=== PATIENT | male | born 1945 | race Caucasian/White ===

== ENCOUNTER 2017-07-12 09:43 | Inpatient (IN) | payer MEDICARE ==
[~2017-07-12] VITALS: Ht 175.3 cm; Wt 104.5 kg
--- NOTE | ~2017-07-12 | DS ---
Unit #: [id number] #: [id number] Patient: FUNMI MAHONEY [id number] [address] [place], [place] [address] [id number] I MR#: [id number] NAME: FUNMI MAHONEY. ROOM: 553 Age: 71 Sex: M Admission Date: 07/12/2017 : 1945 Discharge Date: 07/14/2017 Attending Physician: Miguel Rider M.D. Primary Care Physician: Liza Moore M.D. DISCHARGE SUMMARY DISCHARGE DIAGNOSES 1. Acute non-ST elevation myocardial infarction. 2. Status post thrombectomy and stenting to the saphenous vein graft to the diagonal with Xience drug-eluting stent. 3. Occluded hughes vein graft. 4. Left internal mammary artery patient to the left anterior descending. All other vein grafts occluded. 5. Mild ischemic cardiomyopathy. 6. Ejection fraction 45-50%. 7. Mild chronic systolic heart failure. 8. Hypokinesis of the mid septal wall on echocardiogram. 9. Hypertension. 10. Hyperlipidemia. 11. Mild aortic valve insufficiency and mild mitral valve regurgitation. 12. Benign prostatic hypertrophy. 13. History of 5 vessel coronary artery bypass graft in the past. 14. History of tobacco abuse. 15. History of postop atrial fibrillation in the past. DISCHARGE MEDICATIONS 1. Flomax 0.4 mg at bedtime. 2. Amiodarone 100 mg daily. 3. Lipitor 80 mg at bedtime. 4. Metoprolol tartrate 12.5 mg b.i.d. 5. Zestril 10 mg daily. 6. Zantac 150 mg daily. 7. Aspirin 81 mg daily. 8. Brilinta 90 mg p.o. b.i.d. for a month then patient to start Plavix 75 mg daily due to cost. 9. Sublingual nitroglycerin p.r.n. for chest pain. HISTORY AND HOSPITAL COURSE The patient is a 71-year-old male who was seen in the emergency room with angina at rest that woke him up in the middle of the night. Due to patient's significant cardiac history, there were some abnormalities on his EKG with deep T wave inversion in lead I and AVL as well as a elevation in troponin of 9.96. It was recommended he undergo coronary angiography. Risks and benefits were explained to the patient, he was agreeable. Full cardiac cath report is not available at this time; however, written in chart. All hughes vessels closed such as the left main, RCA, circumflex, LAD, the saphenous vein graft to diagonal was 100% and the MICHAEL was patent. The patient underwent pronto thrombectomy, angioplasty and stenting with a Xience drug-eluting stent x1 to the saphenous vein graft to the diagonal. He was loaded with Brilinta and Unit #: [id number] #: [id number] Patient: FUNMI MAHONEY started on 90 mg b.i.d. Patient went to the ICU post procedure for closer monitoring. Patient did well. He has been up walking around without chest pain. Echocardiogram was performed that showed left ventricular size mildly increased, mild asymmetric septal hypertrophy. Left ventricular systolic function is mildly reduced with LVEF of 45-50, moderate hypokinesis of the mid to septal wall, mildly dilated right ventricle. Right ventricle global systolic function is low normal. Aortic valve is calcified without any evidence of significant aortic stenosis, mild aortic insufficiency, mild mitral valve regurgitation, mild tricuspid valve regurgitation and mild pulmonic regurgitation. Aortic root dimensions were within normal limits. Patient called his insurance company and his co-pay for Brilinta will be over $300.00, was giving him a one month free card. He will take the 30 day free and then start Plavix 75 mg daily after that. If he wishes to take Brilinta longer, we can give him some samples from our office. Patient has been doing well. His kidney function and labs are stable. Electrolytes are stable. He will be discharged home today. CONDITION AT DISCHARGE Stable. Left radial site intact. No evidence of hematoma or bladder. Right groin soft. No hematoma or thrill. Follow up with Dr. Rider on " at 1:45 p.m. Follow up with his PCP in a week. I have encouraged him to enroll in cardiac rehab. I have gone over with him at length his instructions and restrictions and he is agreeable. Dictated by... Silvia Naik APRN for Sonam Gill TD: 07/15/2017 08:06 JOB #: [id number] DISCHARGE SUMMARY Page 1 of 1 X X DISCHARGE SUMMARY
--- NOTE | ~2017-07-12 | CR72 ---
[facility] A Service of [facility] & [facility] RADIOLOGY TEXT RESULTS PATIENT: FUNMI MAHONEY LOCATION: [place] [address]-14 : [birth year] UNIT #: [id number] AGE: [address]: Miguel Rider MD SEX: M ORDER DR: [id number] [facility] [address] [facility]. [place], [place] [address] [id number] MR#: [id number] Acc #: [id number] NAME: FUNMI MAHONEY. : 1945 SEX: M STUDY DATE/TIME: 07/12/2017 10:05 UNIT: [facility] ROOM: [facility] STUDY DESCRIPTION: CR Chest Single View Portable Attending Physician: Miguel Rider M.D. Ordering Physician: Tao Shoemaker M.D. Primary Care Physician: Liza Moore M.D. MEDICAL IMAGING REPORT This report is preliminary unless electronic signature is present EXAM Portable chest 07/12/2017 HISTORY Chest pain for 1 day beginning yesterday morning. Coronary artery disease, CABG and cardiac stent placement. Benign essential hypertension. FINDINGS The heart is enlarged but stable compared with 08/10/2016 status post median sternotomy. The lungs are clear. There are no pleural effusions. IMPRESSION Stable cardiomegaly compared with 08/10/2016. No active pulmonary disease. Dictated by... Roland Padilla M.D. THIS IS AN ELECTRONICALLY VERIFIED REPORT Roland Padilla M.D. at 07/13/2017 10:34 AM ANUJ/joana TD: 07/12/2017 10:30 JOB #: [id number] MEDICAL IMAGING REPORT Page 1 of 1 COPY
--- NOTE | ~2017-07-12 | HP ---
Unit #: [id number] #: [id number] Patient: FUNMI MAHONEY [id number] [address] [place], [place] [address] [id number] I MR#: [id number] NAME: FUNMI MAHONEY. ROOM: 14309 Age: 71 Sex: M Admission Date: 07/12/2017 : 1945 Attending Physician: Miguel Rider M.D. Primary Care Physician: Liza Moore M.D. HISTORY AND PHYSICAL REASON FOR ADMISSION Non-ST elevation ID. HISTORY OF PRESENT ILLNESS This patient is a 71-year-old male who is an office patient of Dr. Headley. He has an extensive cardiac history with history of coronary artery disease. He had a CABG approximate around 2001. In 2011 he had 2 stents placed to the saphenous vein graft to the right coronary artery. He came back with an inferior wall ID in October 2013. He underwent a cardiac cath. He was found to have an occluded vein graft to the RCA, occluded vein graft to the circumflex. The MICHAEL was patent to the LAD and there was a tight stenosis of the vein graft at the diagonal and he underwent drug-eluting stent placement. Patient has ischemic cardiomyopathy; however, he tells me that his EF had improved. He has a history of post ID, atrial fibrillation, is not on anticoagulation at home. he has ischemic cardiomyopathy and chronic systolic heart failure. Over the last several months, patient has been having a pain in left arm radiating into the chest. He describes it as an aching sensation that wakes him from sleep. Patient had thought it was due to him sleeping on his stomach and causing his shoulders to hurt. However, he had some persistent pain on Wednesday a.m. Patient on Wednesday had some discomfort in the left chest that woke him from sleep. He went to the bathroom. Upon walking back from the bathroom it got worse. It woke him up again in the early hours of this morning and was more significant in intensity. He came to the hospital for further evaluation. His troponin was noted to be 9.96 and he was started on low dose heparin drip, topical nitrate and given 325 of aspirin. PAST MEDICAL HISTORY Significant for: 1. Coronary artery disease. 2. Coronary artery bypass graft surgery in 2001. 3. 2 stents to the saphenous vein graft to the right coronary artery in 2011. 4. Acute ID in October 2013. MICHAEL was patent. Saphenous vein graft to the right coronary artery occluded. Saphenous vein graft to the circumflex occluded. Tight stenosis 95-99% saphenous vein graft received a drug-eluting stent. 5. Ischemic cardiomyopathy. Lasted noted EF here in the system 25-30% but patient reports improved. 6. Chronic systolic heart failure. 7. History of post ID. 8. A-fib. 9. Hypertension. 10. Hyperlipidemia. Unit #: [id number] #: [id number] Patient: FUNMI MAHONEY 11. Benign positional vertigo. 12. BPH. SOCIAL HISTORY Patient is an ex-smoker many years ago. No drug abuse or alcohol abuse. He does drink a beer a few days a week. FAMILY HISTORY Noncontributory. DIAGNOSTICS CARDIOVASCULAR: EKG shows T wave abnormalities in I and AVL consistent with anterior ischemia. LABORATORY: White blood cell count 11.1, hemoglobin 16.2, hematocrit 47.9, platelet count 186. Troponin 9.96. CK 60.4, AST 118, sodium 140, potassium 3.9, chloride 106, CO2 23, BUN 14, creatinine 1.0, glucose 125. REVIEW OF SYSTEMS Complains of chest pain, left arm pain. No diaphoresis, shortness of breath, dizziness, lightheadedness, headache, change in visual field, nausea, vomiting or diarrhea. ALLERGIES Allergies to codeine. HOME MEDICINES 1. Amiodarone 100 mg daily. 2. Aspirin 81 mg daily. 3. Lisinopril 10 mg daily. 4. Lipitor 20 mg daily. 5. Zantac 150 mg daily. 6. Flomax 0.4 mg daily. 7. Metoprolol tartrate 25 mg daily. PHYSICAL EXAM GENERAL: The patient is awake and alert, in no acute distress. Color is pink. Skin is warm and dry. VITAL SIGNS: Afebrile. Heart rate 70, blood pressure 122/88. HEENT: Normal carotid upstrokes, no auscultated bruit. Negative JVD lying supine. Negative hepatojugular reflux. Pupils equal, round and reactive. CHEST: Respirations are regular, unlabored at rest. Bilateral breath sounds have good air entry through all lung dejesus. No crackles, rubs or wheezes are heard. HEART: S1, S2. Regular rate and rhythm. No murmurs, rubs or gallops. ABDOMEN: Abdomen is soft, nontender, nondistended. Positive bowel sounds x4 quadrants. No ascites noted. EXTREMITIES: Moves all extremities without difficulty. No peripheral edema. DP/PT pulses are 2+. Cap refill less than 3 seconds. IMPRESSION 1. Non-ST elevation ID. 2. Angina at rest. 3. Extensive history of coronary artery disease with last stent to the saphenous vein graft to the diagonal in October 2013. 4. Chronic systolic heart failure. 5. Ischemic cardiomyopathy. Unit #: [id number] #: [id number] Patient: FUNMI MAHONEY 6. Hypertension. 7. Hyperlipidemia. PLAN Patient still having chest discomfort. Will start on IV nitroglycerin and Integrilin drip. Will repeat EKG to rule out any changes from EKG done 2 hours prior. Recommend going for coronary angiography. The risks and benefits of the procedure have been discussed such as allergy, arrhythmia, ID, CVA, bleeding and . Patient is agreeable. Will proceed today with Dr. Rider. Dictated by Silvia Naik APRN for Sonam Gill/nehal TD: 07/12/2017 12:55 JOB #: [id number] HISTORY AND PHYSICAL Page 1 of 1 X X HISTORY AND PHYSICAL
--- NOTE | ~2017-07-12 | EKG ---
PATIENT: FUNMI MAHONEY UNIT #: [id number] Ventricular Rate: 65 BPM Atrial Rate: 65 BPM P-R Interval: 168 ms QRS Duration: 112 ms Q-T Interval: 472 ms QTC Calculation(Bezet): 490 ms P [place]: 18 degrees Calculated R [place]: 24 degrees Calculated T [place]: 143 degrees Diagnosis Line: Normal sinus rhythm Diagnosis Line: , old Inferior infarct (cited on or before Diagnosis Line: 12-JUL-2017) Diagnosis Line: ST and T wave abnormality, consider lateral ischemia Diagnosis Line: Abnormal ECG Diagnosis Line: When compared with ECG of 12-JUL-2017 11:48, Diagnosis Line: (unconfirmed) Diagnosis Line: No significant change was found Diagnosis Line: Confirmed by DRE MUNGUIA MD ([id number]) on 07/14/2017 Diagnosis Line: 4:48:52 PM INTERPRETING MD: NILDA OSORIO
--- NOTE | ~2017-07-12 | EKG ---
PATIENT: FUNMI MAHONEY UNIT #: [id number] Ventricular Rate: 58 BPM Atrial Rate: 58 BPM P-R Interval: 184 ms QRS Duration: 116 ms Q-T Interval: 470 ms QTC Calculation(Bezet): 461 ms P [place]: 21 degrees Calculated R [place]: 25 degrees Calculated T [place]: 146 degrees Diagnosis Line: Sinus bradycardia Diagnosis Line: Possible Inferior infarct (cited on or before Diagnosis Line: 12-JUL-2017) Diagnosis Line: ST and T wave abnormality, consider lateral ischemia Diagnosis Line: Abnormal ECG Diagnosis Line: When compared with ECG of 12-JUL-2017 15:43, Diagnosis Line: (unconfirmed) Diagnosis Line: No significant change was found Diagnosis Line: Confirmed by DRE MUNGUIA MD ([id number]) on 07/14/2017 Diagnosis Line: 4:52:27 PM INTERPRETING MD: NILDA OSORIO
--- NOTE | ~2017-07-12 | EKG ---
PATIENT: FUNMI MAHONEY UNIT #: [id number] Ventricular Rate: 73 BPM Atrial Rate: 73 BPM P-R Interval: 152 ms QRS Duration: 114 ms Q-T Interval: 428 ms QTC Calculation(Bezet): 471 ms P [place]: 14 degrees Calculated R [place]: 30 degrees Calculated T [place]: 141 degrees Diagnosis Line: Normal sinus rhythm Diagnosis Line: Possible Left atrial enlargement Diagnosis Line: Cannot rule out Inferior infarct , age Diagnosis Line: undetermined Diagnosis Line: Cannot rule out Anterior infarct , age Diagnosis Line: undetermined Diagnosis Line: ST and T wave abnormality, consider lateral ischemia Diagnosis Line: Abnormal ECG Diagnosis Line: When compared with ECG of 10-AUG-2016 17:06, Diagnosis Line: Vent. rate has increased BY 27 BPM Diagnosis Line: T wave inversion now evident in Lateral leads Diagnosis Line: Confirmed by DRE MUNGUIA MD ([id number]) on 07/14/2017 Diagnosis Line: 4:48:35 PM INTERPRETING MD: NILDA OSORIO
--- NOTE | ~2017-07-12 | EKG ---
PATIENT: FUNMI MAHONEY UNIT #: [id number] Ventricular Rate: 64 BPM Atrial Rate: 64 BPM P-R Interval: 134 ms QRS Duration: 110 ms Q-T Interval: 454 ms QTC Calculation(Bezet): 468 ms P [place]: -5 degrees Calculated R [place]: 32 degrees Calculated T [place]: 139 degrees Diagnosis Line: Normal sinus rhythm Diagnosis Line: , old Inferior infarct (cited on or before Diagnosis Line: 12-JUL-2017) Diagnosis Line: ST and T wave abnormality, consider lateral ischemia Diagnosis Line: Abnormal ECG Diagnosis Line: When compared with ECG of 12-JUL-2017 11:49, Diagnosis Line: (unconfirmed) Diagnosis Line: No significant change was found Diagnosis Line: Confirmed by DRE MUNGUIA MD ([id number]) on 07/14/2017 Diagnosis Line: 4:51:02 PM INTERPRETING MD: NILDA OSORIO
[~2017-07-12 09:43] MED LIST: AMIODARONE HCL100 MG PO; AMLODIPINE BESY10 MG PO; AMLODIPINE BESYL5 MG PO; ASPIRIN; ASPIRIN ENTERI325 M1 PO; ASPIRIN325 M1 PO; ASPIRIN81 M2 PO; ATENOLOL; ATENOLOL25 MG PO; BAYER ASPIRIN325 M1 PO; BAYER CHEWABLE81 MG PO; BRILINTA90 MG PO; COLACE50 MG PO; CORDARONE200 M1 PO; DISCONTINUED MED; EFFIENT10 MG PO; FLOMAX0.4 M1 DOB; FLOMAX0.4 M1 PO; K-DUR10 MEQ PO; LASIX PO; LEVOFLOXACIN1 GM PO; LEXAPRO; LIPITOR20 MG PO; LISINOPRIL; LISINOPRIL10 MG PO; MECLIZINE HCL12.5 M2 PO; METOPROLOL SUCC25 MG PO; METOPROLOL TAR25 MG; METOPROLOL TAR25 MG PO; PACERONE PO; PRINIVIL40 MG PO; RANITIDINE; RANITIDINE HCL150 M1 PO; TENORMIN25 MG PO; TRAZODONE; ZANTAC150 M1 PO; ZESTRIL40 MG PO; ZESTRIL5 MG PO; ZOCOR
[2017-07-12 10:30] LABS: BASOPHIL# 0.1 X10e3 (0-0.3); BASOPHIL% 0.5 % (0-2.5); EOSINOPHIL# 0.1 X10e3 (0-0.7); EOSINOPHIL% 0.5 % (0.0-7.0); HEMATOCRIT 47.9 % (38.0-50.0); HEMOGLOBIN 16.2 gm/dL (13.0-16.0); MEAN CELL VOLUME 86.5 FL (83-96); MEAN CORPUSCULAR HEMOGLOBIN 29.3 PG (28-34); MEAN CORPUSCULAR HGB CONC 33.8 g/dL (30-36); MEAN PLATELET VOLUME 8.7 FL (6.5-11.5); MONOCYTE# 0.9 X10e3 (0-1.0); MONOCYTE% 7.7 % (3.0-12.0); NEUTROPHIL# 8.1 X10e3 (1.5-7.1); NEUTROPHIL% 73.3 % (40-75); PLATELET COUNT 186 X10e3 (140-420); RED BLOOD COUNT 5.54 X10e (3.90-5.60); RED CELL DISTRIBUTION WIDTH 14.3 % (11.0-15.5); WHITE BLOOD COUNT 11.1 X10e3 (4.0-10.5)
[2017-07-12 10:35] LABS: DIFF IND NO
[2017-07-12 10:41] LABS: POC - CKMB 60.4 ng/mL (0.0-7.9); POC - TROPONIN 9.96 ng/mL (<=0.05)
[2017-07-12 10:47] LABS: INR 1.1; PARTIAL THROMBOPLASTIN TIME 26.1 SECONDS (23.5-31.3); PROTHROMBIN TIME (PATIENT) 11.6 SECONDS (10.0-11.7)
[2017-07-12 10:54] LABS: ALBUMIN SERUM 4.4 g/dL (3.5-5.0); BILIRUBIN, DIRECT 0.3 mg/dL (0.0-0.2); BILIRUBIN,INDIRECT 0.5 mg/dL (0.0-0.9); BILIRUBIN,TOTAL 0.8 mg/dL (0.2-2.0); CALCIUM SERUM 9.2 mg/dL (8.4-10.2); GLOM FILT RATE Estimated 76.5 mL/min (>60); POTASSIUM 3.9 mmol/L (3.5-5.1); PROTEIN TOTAL SERUM 7.4 g/dL (6.0-8.3)
[2017-07-12 11:51] LABS: POC - CKMB 25.3 ng/mL (0.0-7.9); POC - TROPONIN 5.46 ng/mL (<=0.05)
[2017-07-12 13:18] LABS: CHOLESTEROL 152 mg/dL (0-200); HDL CHOLESTEROL 37 mg/dL (29-75); LDL CHOLESTEROL 95 mg/dL (-130); LDL/HDL RATIO 3 RATIO (0-4); TRIGLYCERIDES 98 mg/dL (10-160)
[2017-07-12 23:53] LABS: ANGIO %MB 10.8 % (0.0-4.0); ANGIO MB 66.2 ng/ml
[2017-07-13 07:22] LABS: HEMATOCRIT 40.7 % (38.0-50.0); MEAN CELL VOLUME 86.8 FL (83-96); MEAN CORPUSCULAR HGB CONC 34.6 g/dL (30-36); MEAN PLATELET VOLUME 8.5 FL (6.5-11.5); RED BLOOD COUNT 4.69 X10e (3.90-5.60); RED CELL DISTRIBUTION WIDTH 14.4 % (11.0-15.5); WHITE BLOOD COUNT 8.2 X10e3 (4.0-10.5)
[2017-07-13 07:23] LABS: HEMOGLOBIN 14.1 gm/dL (13.0-16.0)
[2017-07-13 08:02] LABS: BUN/CREATININE RATIO 16.66; CALCIUM SERUM 8.5 mg/dL (8.4-10.2); CREATININE SERUM 1.2 mg/dL (0.6-1.4); GLOM FILT RATE Estimated 61.3 mL/min (>60); MAGNESIUM 2.3 mg/dL (1.6-3.0); POTASSIUM 3.9 mmol/L (3.5-5.1)
[2017-07-13 08:47] LABS: ANGIO %MB 7.1 % (0.0-4.0); ANGIO MB 32.1 ng/ml
[2017-07-14] MEDS ORDERED: LIPITOR PO (12:46)
[2017-07-14] MEDS ORDERED: FLOMAX0.4 M1 PO (12:46)
[2017-07-14] MEDS ORDERED: AMIODARONE PO (12:46)
[2017-07-14] MEDS ORDERED: LOPRESSOR PO (12:47)
[2017-07-14] MEDS ORDERED: LISINOPRIL PO (12:48)
[2017-07-14] MEDS ORDERED: BRILINTA90 MG PO (12:49)
[2017-07-14] MEDS ORDERED: ASPIRIN81 MG PO (12:49)
[2017-07-14] MEDS ORDERED: ZANTAC PO (12:49)
[2017-07-14] MEDS ORDERED: NITROGLYCERIN0.4 MG SL (12:51)
[2017-07-14] MEDS ORDERED: CLOPIDOGREL75 MG (12:52)
[2017-07-14] MEDS ORDERED: PLAVIX PO (12:54)
== END 2017-07-14 14:55 | disposition home or self-care (01) | DRG 247 ==
LOC: CED 09:43 → CEDOF 11:30 → CICCU3 12:45 → CEDOF 12:45 → CED 12:45 → CICCU3 15:06 → CEDOF 15:06 → CICCU3 15:06 → C5B 07-13 10:56
PROVIDERS: Emergency Medicine; Internal Medicine Cardiovascular Disease
PROC: 4A023N7 Measurement of Cardiac Sampling and Pressure, Left Heart, Percutaneous Approach (ICD-10-PCS; principal; 2017-07-12)
PROC: 027035Z Dilation of Coronary Artery, One Artery with Two Drug-eluting Intraluminal Devices, Percutaneous Approach (ICD-10-PCS; 2017-07-12)
PROC: B211YZZ Fluoroscopy of Multiple Coronary Arteries using Other Contrast (ICD-10-PCS; 2017-07-12)
PROC: B215YZZ Fluoroscopy of Left Heart using Other Contrast (ICD-10-PCS; 2017-07-12)
PROC: B212YZZ Fluoroscopy of Single Coronary Artery Bypass Graft using Other Contrast (ICD-10-PCS; 2017-07-12)
DX: I21.4 Non-ST elevation (NSTEMI) myocardial infarction (principal); I11.0 Hypertensive heart disease with heart failure; I50.22 Chronic systolic (congestive) heart failure; T82.898A Other specified complication of vascular prosthetic devices, implants and grafts, initial encounter; I48.91 Unspecified atrial fibrillation; E78.5 Hyperlipidemia, unspecified; I08.0 Rheumatic disorders of both mitral and aortic valves; N40.0 Benign prostatic hyperplasia without lower urinary tract symptoms; Z87.891 Personal history of nicotine dependence; I25.10 Atherosclerotic heart disease of native coronary artery without angina pectoris; I25.2 Old myocardial infarction; Z88.5 Allergy status to narcotic agent; I25.5 Ischemic cardiomyopathy
CPT/HCPCS: 36415; 71010; 80048; 80061; 80076; 82550; 82553; 83735; 84484; 85025; 85027; 85347; 85610; 85730; 93005; 94760; 99152; 99153; 99285; C1725; C1769; C1874; C1887; C1894; J0153; J1327; J1644; J2250; J2270; J2405; J3010